=== PATIENT | male | born 1955 | race Caucasian/White ===

== ENCOUNTER 2021-07-13 22:15 | Emergency (ER) | payer BC, OTHER ==
[2021-07-13] MEDS ORDERED: Heparin Sodium 5,000 Units/ML Vial IVPUSH STA (22:34)
--- NOTE | 2021-07-13 22:42 | EDM.PDOC ---
ED HPI GENERAL MEDICAL PROBLEM - General Chief Complaint: Cardiovascular Problem Stated Complaint: [facility] Time Seen by Provider: 07/13/21 22:27 Source of Information: Reports: Patient, EMS History Limitations: Reports: No Limitations - History of Present Illness INITIAL COMMENTS - FREE TEXT/NARRATIVE: Mr. Nguyen is a very pleasant 65-year-old gentleman who now presents the ED by EMS with a complaint of dyspnea. He states that he lives in [place], [place], and that he drove to [place] for the holidays. 4 days ago, on 07/10/2021, the patient developed left lower extremity swelling and erythema, which became worse tonight. He states that he developed dyspnea 3 days ago. He started driving back to [place] on morning, 07/12/2021. He states that he has been trying to drive straight through, pulling over for short periods of time to sleep, then waking up to turn his car on it to warm it up, sleeping for a while, then getting back on the road. He states that he pulled over to get gas [place], and could not find his wallet. He states that he started crying, after which his dyspnea became worse, prompting him to call EMS. He states that he has had a slight cough productive of colorless sputum, but he denies having recent chest pain, palpitations, or fever. At triage, the patient's initial BP was found to be modestly elevated 155/74 with tachycardia 128 bpm and tachypnea of 33 rpm. He was afebrile, saturating 84% on 3 L of oxygen per nasal cannula. He appears to be somewhat fatigued, although in no acute distress. Prior to 6 days ago, the patient denies having a recent fever, chills, sore throat, ear pain, nasal or sinus congestion, cough, dyspnea, chest pain, palpitations, nausea, vomiting, constipation, diarrhea, abdominal pain, urinary symptoms, recent weight gain or weight loss, recent bloody bowel movements or black bowel movements, recent joint aches, headaches, or rashes. The patient's PCP is in [place], [place]. He has received a single [employer] COVID vaccination, although no influenza vaccination this season. Left Lower Leg Pain Score (Numeric/FACES): 6 - Related Data Allergies Allergy/AdvReac Type Severity Reaction Status Date / Time No Known Allergies Allergy Verified 07/09/18 01:38 [employer] WORK[employer] Home Meds: Home Meds Aspirin 81 mg PO DAILY 07/09/18 [History] Clopidogrel [Plavix] 75 mg PO DAILY 07/09/18 [History] Furosemide [Lasix] 40 mg PO DAILY 07/09/18 [History] Losartan [Cozaar] 100 mg PO DAILY 07/09/18 [History] Metoprolol Succinate [Toprol XL 50mg] 50 mg PO DAILY 07/09/18 [History] Ezetimibe 20 mg PO DAILY 07/13/21 [History] Rosuvastatin [Crestor] 20 mg PO DAILY 07/13/21 [History] amLODIPine [Norvasc] 5 mg PO DAILY 07/13/21 [History] cephALEXin [Cephalexin] 1 cap PO QAM #9 capsule 07/14/21 [Rx] Past Medical History Cardiovascular History: Reports: Arrhythmia (SVT, s/p cardiac ablation as a teenager), Heart Failure, High Cholesterol, Hypertension Respiratory History: Reports: COPD Genitourinary History: Reports: Chronic Renal Insuffiency Psychiatric History: Reports: Anxiety Endocrine/Metabolic History: Reports: Obesity/BMI 30+ - Past Surgical History Cardiovascular Surgical History: Reports: Cardiac Ablation (for SVT, as a teenager), Other (See Below) (Coronary angiogram x 2 -> clean) Other Male Surgeries/Procedures: hydrocele repair 06/10 Social & Family History - Tobacco Use Tobacco Use Status *Q: Former Tobacco User Tobacco Use Within Last Twelve Months: Vaping (Nicotine) Years of Tobacco use: 31 Packs/Tins Daily: 2 Month/Year Tobacco Last Used: Quit 2014 Tobacco Use Comment: Started smoking 1973 - Alcohol Use Alcohol Use History: Yes Alcohol Use Frequency: Rarely - Recreational Drug Use Recreational Drug Use: No - Living Situation & Occupation Living situation: Reports: , Other (Friend) 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 ED EXAM, GENERAL - Physical Exam Exam: See Below Exam Limited By: No Limitations General Appearance: Alert, WD/WN, Mild Distress (appears somewhat fatigued) Eye Exam: Bilateral Eye: EOMI, Normal Inspection Ears: Normal External Exam, Hearing Grossly Normal Nose: Normal Inspection Throat/Mouth: Normal Inspection, Normal Lips, Normal Voice, No Airway Compromise Head: Atraumatic, Normocephalic Neck: Normal Inspection, Full Range of Motion Respiratory/Chest: No Respiratory Distress, Lungs Clear, Normal Breath Sounds, No Accessory Muscle Use. No: Decreased Breath Sounds, Crackles, Rhonchi, Wheezing, Prolonged Expiration Cardiovascular: Normal Peripheral Pulses, No Gallop, No JVD, No Murmur, No Rub, Tachycardia (regular) Peripheral Pulses: 3+: Radial (L), Radial (R) GI/Abdominal: Normal Bowel Sounds, Soft, Non-Tender, No Organomegaly, No Distention, No Abnormal Bruit, No Mass Extremities: Normal Range of Motion, Normal Capillary Refill, Other (Erythema with 4+ pitting edema to the left leg, to slightly above the knee. Stasis ulcer to the anterior mid-leg.) Neurological: Alert, Oriented, Normal Cognition, No Motor/Sensory Deficits Psychiatric: Normal Affect Skin Exam: Warm, Dry, Intact, Normal Color, No Rash #1 Interpretation EKG Date: 07/13/21 Time: 23:21 Rhythm: Other (Sinus tachycardia with single PVC) Rate (Beats/Min): 125 [place]: LAD-Left [place] Deviation (due to LAFB) P-Wave: Present QRS: Normal ST-T: Elevated (Diffuse J-point elevation with out T-wave inversions) QT: Prolonged (QTc 501 ms) Comparison: NA - No Prior EKG Course - Vital Signs Last Recorded V/S: Last Vital Signs Temp 37.3 C 07/13/21 22:26 Pulse 128 H 07/13/21 22:26 Resp 33 H 07/13/21 22:26 BP 155/74 H 07/13/21 22:26 Pulse Ox 91 L 07/14/21 01:16 - Orders/Labs/Meds Orders: Active Orders 24 hr Category Date Time Status VL Duplex Lwr Ext Veins Ltd Lt [US] Stat Exams 07/14/21 00:30 Taken Sodium Chloride 0.9% [Normal Saline] 100 ml Med 07/13/21 23:15 Active IV ASDIRECTED Medication Orders Sodium Chloride (Normal Saline) 100 mls @ 60 mls/min IV ASDIRECTED RIGOBERTO Last Admin: 07/13/21 23:03 Dose: 60 mls/min Documented by: JAYE Labs: Laboratory Tests 07/13/21 07/13/21 07/13/21 Range/Units 22:30 22:40 22:40 WBC 20.32 H (4.23-9.07) K/mm3 RBC 4.99 (4.63-6.08) M/mm3 Hgb 15.3 (13.7-17.5) gm/dl Hct 46.7 (40.1-51.0) % MCV 93.6 H (79.0-92.2) fl MCH 30.7 (25.7-32.2) pg MCHC 32.8 (32.2-35.5) g/dl RDW Std Deviation 49.8 H (35.1-43.9) fL Plt Count 263 (163-337) K/mm3 MPV 10.6 (9.4-12.3) fl Neutrophils % (Manual) 88 H (40-60) % Band Neutrophils % 2 (0-10) % Lymphocytes % (Manual) 2 L (20-40) % Atypical Lymphs % 0 % Monocytes % (Manual) 8 (2-10) % Eosinophils % (Manual) 0 L (0.8-7.0) % Basophils % (Manual) 0 L (0.2-1.2) Platelet Estimate Adequate Plt Morphology Comment Normal RBC Morph Comment Normal PT (9.7-12.0) SECONDS INR APTT (21.7-31.4) SECONDS Puncture Site ABG pH (7.35-7.45) ABG pCO2 (35.0-45.0) mmHg ABG pO2 (80.0-100.0) mmHg ABG HCO3 (22.0-26.0) meq/L ABG O2 Saturation (96.0-97.0) % ABG Base Excess (-2-2.0) A-a Gradient mmHg O2 Delivery Device Oxygen Flow Rate FiO2 (21.00-100.00) % Sodium 134 L (136-145) mEq/L Potassium 3.6 (3.5-5.1) mEq/L Chloride 95 L (98-107) mEq/L Carbon Dioxide 25 (21-32) mEq/L Anion Gap 17.6 H (5-15) BUN 89 H (7-18) mg/dL Creatinine 6.0 H (0.7-1.3) mg/dL Est Cr Clr Drug Dosing 12.44 mL/min Estimated GFR (MDRD) 10 (>60) mL/min BUN/Creatinine Ratio 14.8 (14-18) Glucose 220 H (70-99) mg/dL Lactic Acid (0.4-2.0) mmol/L Calcium 9.0 (8.5-10.1) mg/dL Magnesium 2.0 (1.8-2.4) mg/dL Total Bilirubin 0.5 (0.2-1.0) mg/dL AST 56 H (15-37) U/L ALT 83 H (16-63) U/L Alkaline Phosphatase 133 H (46-116) U/L Troponin I < 0.017 (0.00-0.056) ng/mL NT-Pro-B Natriuret Pep (0-125) pg/mL Total Protein 7.7 (6.4-8.2) g/dl Albumin 2.3 L (3.4-5.0) g/dl Globulin 5.4 gm/dL Albumin/Globulin Ratio 0.4 L (1-2) SARS-CoV-2 RNA (AZAM) Negative (NEGATIVE) 07/13/21 07/13/21 07/13/21 Range/Units 22:40 22:40 22:40 WBC (4.23-9.07) K/mm3 RBC (4.63-6.08) M/mm3 Hgb (13.7-17.5) gm/dl Hct (40.1-51.0) % MCV (79.0-92.2) fl MCH (25.7-32.2) pg MCHC (32.2-35.5) g/dl RDW Std Deviation (35.1-43.9) fL Plt Count (163-337) K/mm3 MPV (9.4-12.3) fl Neutrophils % (Manual) (40-60) % Band Neutrophils % (0-10) % Lymphocytes % (Manual) (20-40) % Atypical Lymphs % % Monocytes % (Manual) (2-10) % Eosinophils % (Manual) (0.8-7.0) % Basophils % (Manual) (0.2-1.2) Platelet Estimate Plt Morphology Comment RBC Morph Comment PT 12.4 H (9.7-12.0) SECONDS INR 1.12 APTT 69.8 H (21.7-31.4) SECONDS Puncture Site ABG pH (7.35-7.45) ABG pCO2 (35.0-45.0) mmHg ABG pO2 (80.0-100.0) mmHg ABG HCO3 (22.0-26.0) meq/L ABG O2 Saturation (96.0-97.0) % ABG Base Excess (-2-2.0) A-a Gradient mmHg O2 Delivery Device Oxygen Flow Rate FiO2 (21.00-100.00) % Sodium (136-145) mEq/L Potassium (3.5-5.1) mEq/L Chloride (98-107) mEq/L Carbon Dioxide (21-32) mEq/L Anion Gap (5-15) BUN (7-18) mg/dL Creatinine (0.7-1.3) mg/dL Est Cr Clr Drug Dosing mL/min Estimated GFR (MDRD) (>60) mL/min BUN/Creatinine Ratio (14-18) Glucose (70-99) mg/dL Lactic Acid 3.0 H* (0.4-2.0) mmol/L Calcium (8.5-10.1) mg/dL Magnesium (1.8-2.4) mg/dL Total Bilirubin (0.2-1.0) mg/dL AST (15-37) U/L ALT (16-63) U/L Alkaline Phosphatase (46-116) U/L Troponin I (0.00-0.056) ng/mL NT-Pro-B Natriuret Pep 4650 H (0-125) pg/mL Total Protein (6.4-8.2) g/dl Albumin (3.4-5.0) g/dl Globulin gm/dL Albumin/Globulin Ratio (1-2) SARS-CoV-2 RNA (AZAM) (NEGATIVE) 07/13/21 07/14/21 Range/Units 23:10 01:28 WBC (4.23-9.07) K/mm3 RBC (4.63-6.08) M/mm3 Hgb (13.7-17.5) gm/dl Hct (40.1-51.0) % MCV (79.0-92.2) fl MCH (25.7-32.2) pg MCHC (32.2-35.5) g/dl RDW Std Deviation (35.1-43.9) fL Plt Count (163-337) K/mm3 MPV (9.4-12.3) fl Neutrophils % (Manual) (40-60) % Band Neutrophils % (0-10) % Lymphocytes % (Manual) (20-40) % Atypical Lymphs % % Monocytes % (Manual) (2-10) % Eosinophils % (Manual) (0.8-7.0) % Basophils % (Manual) (0.2-1.2) Platelet Estimate Plt Morphology Comment RBC Morph Comment PT (9.7-12.0) SECONDS INR APTT (21.7-31.4) SECONDS Puncture Site Lt radial ABG pH 7.32 L (7.35-7.45) ABG pCO2 41.4 (35.0-45.0) mmHg ABG pO2 81.0 (80.0-100.0) mmHg ABG HCO3 20.7 L (22.0-26.0) meq/L ABG O2 Saturation 96.4 (96.0-97.0) % ABG Base Excess -4.6 L (-2-2.0) A-a Gradient 96 mmHg O2 Delivery Device Nasal cannula Oxygen Flow Rate 3.0 FiO2 32.00 (21.00-100.00) % Sodium (136-145) mEq/L Potassium (3.5-5.1) mEq/L Chloride (98-107) mEq/L Carbon Dioxide (21-32) mEq/L Anion Gap (5-15) BUN (7-18) mg/dL Creatinine (0.7-1.3) mg/dL Est Cr Clr Drug Dosing mL/min Estimated GFR (MDRD) (>60) mL/min BUN/Creatinine Ratio (14-18) Glucose (70-99) mg/dL Lactic Acid 1.7 (0.4-2.0) mmol/L Calcium (8.5-10.1) mg/dL Magnesium (1.8-2.4) mg/dL Total Bilirubin (0.2-1.0) mg/dL AST (15-37) U/L ALT (16-63) U/L Alkaline Phosphatase (46-116) U/L Troponin I (0.00-0.056) ng/mL NT-Pro-B Natriuret Pep (0-125) pg/mL Total Protein (6.4-8.2) g/dl Albumin (3.4-5.0) g/dl Globulin gm/dL Albumin/Globulin Ratio (1-2) SARS-CoV-2 RNA (AZAM) (NEGATIVE) Meds: Medications Generic Name Dose Route Start Last Admin Trade Name Jocelin PRN Reason Stop Dose Admin Sodium Chloride 100 mls @ 60 mls/min 07/13/21 23:15 07/13/21 23:03 Normal Saline IV 60 mls/min ASDIRECTED RIGOBERTO Administration Discontinued Medications Generic Name Dose Route Start Last Admin Trade Name Jocelin PRN Reason Stop Dose Admin Heparin Sodium (Porcine) 5,000 units 07/13/21 22:34 07/13/21 22:42 Heparin Sodium 5,000 Units/Ml Vial IVPUSH 07/13/21 22:35 5,000 units .BOLUS STA Administration Heparin Sodium/Dextrose 25,000 units in 500 mls @ 26 mls/hr 07/13/21 22:45 07/13/21 22:42 Heparin 25,000 Units In D5w 500 Ml IV 1,300 units/hr TITRATE RIGOBERTO 26 mls/hr Administration Protocol 1,300 UNITS/HR Sodium Chloride 1,000 mls @ 100 mls/hr 07/13/21 22:45 07/13/21 22:42 Normal Saline IV 100 mls/hr ASDIRECTED RIGOBERTO Administration Sodium Chloride 1,000 mls @ 999 mls/hr 07/13/21 23:42 07/13/21 23:48 Normal Saline IV 07/14/21 00:42 999 mls/hr ONETIME ONE Administration Iopamidol 100 ml 07/13/21 23:01 07/13/21 23:03 Iopamidol 755 Mg/Ml 100 Ml Bottle IVPUSH 07/13/21 23:02 100 ml ONETIME ONE Administration Sodium Chloride 10 ml 07/13/21 23:01 07/13/21 23:03 Sodium Chloride 0.9% 10 Ml Sdv FLUSH 07/13/21 23:02 10 ml ONETIME ONE Administration - Re-Assessments/Exams Free Text/Narrative Re-Assessment/Exam: 07/13/21 22:41 The patient's history strongly suggestive of pulmonary embolus. I have therefore ordered a stat CT angiogram of the chest to evaluate for a PE, along with empiric heparin by bolus and drip, along with some IV fluid. I have also ordered a work-up that includes numerous blood tests, an ABG, a swab for the SARS-CoV-2 virus, and an ECG. 07/13/21 23:37 The patient's CBC is remarkable for leukocytosis of 20.32, but with only 2% bandemia, and the remainder of his CBC being unremarkable. His CMP is remarkable for slight hyponatremia of 134, a BUN/Cr significantly elevated at 89/6.0, hyperglycemia of 220, and AST/ALT slightly elevated at 56/83, respectively, and an alkaline phosphatase slightly elevated at 133, with remainder of his CMP being unremarkable. His magnesium level is within normal limits at 2.0. His lactic acid level is elevated at 3.0. His troponin is undetectably low. His pro-BNP is modestly elevated at 4550. His ABG demonstrates a primary metabolic acidosis with inadequate respiratory compensation. His swab for the SARS-CoV-[address] angiogram is read by Dr. Kelly as: 1. No findings of pulmonary embolism. 2. Small calcified granuloma within the left upper lung. Two calcified granulomas are seen within the spleen. 3. Nothing acute is seen on CT study of the chest. Based on the above, I have ordered discontinuation of the heparin drip, and will order a Doppler of the left lower extremity. His current IV fluid will be switched to a 1 L bolus of IV fluid. 07/14/21 02:27 The patient's repeat lactic acid level is down to 1.7. Doppler ultrasound of the left lower extremity is read by vR as "No evidence of deep venous thrombosis in the left lower extremity." 07/14/21 02:37 Test results discussed with the patient. His oxygen saturation is currently 95% on room air. It appears that his initial read of low oxygen was likely due to a poor plethysmograph on the pulse oximeter. His fingers may also have been cold, contributing to a low read. His dyspnea appears to have been due to anxiety, not a pathologic process. His left lower extremity swelling and erythema is most likely chronic, and appears to be due to venous insufficiency. The wound to his anterior left leg appears to be a venous stasis ulcer that could be infected, therefore he will be started on cephalexin at a renal dose. I am con cerned that his furosemide may be contributing to his renal insufficiency, therefore I recommended that he start taking it every other day, instead of daily, and follow-up with his PCP as soon as he gets back to [place]. Departure - Departure Time of Disposition: 02:40 Disposition: Home, Self-Care 01 Condition: Good Clinical Impression: Venous stasis ulcer, Dyspnea Prescriptions: cephALEXin [Cephalexin] 1 cap PO QAM #9 capsule Referrals: PCP,Not In Area [Ordering Only Provider] - Forms: ED Department Discharge Additional Instructions: You were seen in the emergency room for worsening left leg swelling and redness, and worsening shortness of breath. Work-up in the ER included numerous blood tests, an arterial blood gas, a swab for the SARS-CoV-2 virus, a Doppler of your left lower extremity, and a CT angiogram of your chest. Your blood work found your kidney function to be very poor, with a BUN/Cr elevated at 89/6.0. You were also found to be acidotic, which improved after you were given some IV fluid. The remainder of your work-up was unremarkable. You do not have a blood clot in your lungs or left lower extremity. You do not have pneumonia. Your Covid test was negative. Based on your history, physical exam, and ER tests, your shortness of breath was most likely due to anxiety. Your chronic left lower extremity edema is most likely due to venous insufficiency, and it appears that you have a venous stasis ulcer on the front of your left leg, that could be infected. You have been started on the antibiotic cephalexin (Keflex), and a prescription for cephalexin has been provided to you. Take 1 capsule of cephalexin every morning, starting tomorrow morning, 07/15/2021, as prescribed. Finish the entire prescription unless told otherwise by your doctor. Because of your worsening kidney function, we recommend that you decrease your furosemide (Lasix) to 1 tablet every other day, instead of 1 tablet every day. We strongly recommend that you follow-up with your PCP as soon as you return to [place]. If any other problems, please do not hesitate to return to the ER. Sepsis Event Note (ED) - Focused Exam Vital Signs: Vital Signs Temp Pulse Resp BP Pulse Ox Pulse Ox 07/14/21 01:16 91 L 07/14/21 01:15 86 L 07/13/21 22:26 37.3 C 128 H 33 H 155/74 H 84 L - My Orders Last 24 Hours: My Active Orders 07/13/21 23:15 Sodium Chloride 0.9% [Normal Saline] 100 ml IV ASDIRECTED 07/14/21 00:30 Duplex Lwr Ext Veins Ltd Lt [US] Stat - Assessment/Plan Last 24 Hours: My Active Orders 07/13/21 23:15 Sodium Chloride 0.9% [Normal Saline] 100 ml IV ASDIRECTED 07/14/21 00:30 Duplex Lwr Ext Veins Ltd Lt [US] Stat
[2021-07-13] MEDS ORDERED: Sodium Chloride 0.9% 1,000 ML IV SCH (22:45)
[2021-07-13] MEDS ORDERED: Heparin Sodium/D5W 25,000 UNITS/500 ML BAG IV SCH (22:45)
[2021-07-13] MEDS ORDERED: Sodium Chloride 0.9% 10 ML SDV FLUSH ONE (23:01)
[2021-07-13] MEDS ORDERED: Iopamidol 755 Mg/ML 100 ML Bottle IVPUSH ONE (23:01)
[2021-07-13] MEDS ORDERED: Sodium Chloride 0.9% 100 ML IV SCH (23:15)
--- NOTE | 2021-07-13 23:18 | CT ---
CT chest Technique: Multiple axial sections were obtained from above the lung apices inferiorly through the lung bases. Intravenous contrast was utilized. Study has been performed as a pulmonary angiogram protocol. Comparison: No prior chest imaging is available. Findings: Pulmonary arteries are well opacified. No filling defects are seen to indicate pulmonary embolism. Thoracic aorta shows no aneurysm. Minimal atherosclerotic calcification is seen within the thoracic aorta. Mediastinum shows no adenopathy. No axillary adenopathy is seen. No pericardial thickening is seen. Partially visualized cyst is noted within the left kidney measuring 2.8 cm. Two small calcified granulomas are seen within the spleen. No other acute finding is seen within the upper abdomen. Lung window settings were reviewed. Calcified granuloma is noted within the left upper lung. No acute parenchymal process is seen. Bone window settings were reviewed which show no acute osseous abnormality. Impression: 1. No findings of pulmonary embolism. 2. Small calcified granuloma within the left upper lung. Two calcified granulomas are seen within the spleen. 3. Nothing acute is seen on CT study of the chest. Diagnostic code #2
[2021-07-13] MEDS ORDERED: Sodium Chloride 0.9% 1,000 ML IV ONE (23:42)
[2021-07-14] MEDS ORDERED: Cephalexin 500 MG Cap PO STA (02:33)
--- NOTE | 2021-07-16 13:45 | US ---
EXAM: US LEG LT VENOUS LOCATION: [facility] DATE/TIME: 07/14/2021 12:38 AM INDICATION: Left lower extremity edema. COMPARISON: None. TECHNIQUE: Venous Duplex ultrasound of the left lower extremity with and without compression, augmentation and duplex. Color flow and spectral Doppler with waveform analysis performed. FINDINGS: Exam includes the common femoral, femoral, popliteal, and contralateral common femoral veins as well as segmentally visualized deep calf veins and greater saphenous vein. LEFT: No deep vein thrombosis. No superficial thrombophlebitis. No popliteal cyst. IMPRESSION: 1. No deep venous thrombosis in the left lower extremity. SIGNED BY: Ludwin Morales MD 07/16/2021 12:25 PM [facility]
== END 2021-07-14 03:30 | disposition home or self-care (01) ==
LOC: JD.ED 22:15
DX: I83.022 Varicose veins of left lower extremity with ulcer of calf (principal); R06.00 Dyspnea, unspecified; I12.9 Hypertensive chronic kidney disease with stage 1 through stage 4 chronic kidney disease, or unspecified chronic kidney disease; N18.9 Chronic kidney disease, unspecified; E66.9 Obesity, unspecified; J44.9 Chronic obstructive pulmonary disease, unspecified; Z87.891 Personal history of nicotine dependence; Z79.82 Long term (current) use of aspirin; Z79.02 Long term (current) use of antithrombotics/antiplatelets; Z79.899 Other long term (current) drug therapy; Z20.822 Contact with and (suspected) exposure to COVID-19; Z68.43 Body mass index [BMI] 50.0-59.9, adult
CPT/HCPCS: 36415; 36600; 71275; 80053; 82803; 83605; 83735; 83880; 84484; 85007; 85027; 85610; 85730; 87635; 93005; 93971; 96365; 99285; A9270; J1644; J7030; Q9967; U0002